=== PATIENT | female | born 1940 | race Caucasian/White ===

== ENCOUNTER 2016-09-28 11:45 | Emergency (ER) | payer OTHER, MEDICARE ==
--- NOTE | 2016-09-28 13:17 | DIAGNOSTIC IMAGING REPORT ---
PROCEDURE: XR LUMBAR SPINE 2 OR 3 VIEWS INDICATION: LOWER BACK PAIN TECHNIQUE: Three views. COMPARISON: None. FINDINGS: Status post fusion and artificial disc at L4-5. There is also a severe spondylosis at L 23. There is a severe degenerative change at L5-6 as well. IMPRESSION: 1. Status post L4-5 fusion with severe degenerative change at L5 S1 and at L2-3 on the right.
--- NOTE | 2016-09-28 13:19 | DIAGNOSTIC IMAGING REPORT ---
PROCEDURE: XR HIP 2VW W W/O AP PELVIS-RT INDICATION: PAIN TECHNIQUE: AP view of the pelvis and hips with lateral view of the right hip. COMPARISON: None. FINDINGS: Right HIP: Bilateral total hip replacement. There is no fracture or dislocation. PELVIS: Osseous pelvis is normal. IMPRESSION: 1. 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
--- NOTE | 2016-09-28 14:04 | ED CLINICAL REPORT ---
Clinical Report - Physicians/Mid Levels [facility] [address] [place] [address] 09/28/2016 11:48 Patient: THONY GARCÍA Time Seen: 12:21. Arrived- By private vehicle. Historian- patient. HISTORY OF PRESENT ILLNESS Chief Complaint: LOWER EXTREMITY PAIN. Severity is described as being severe. The quality is noted to be "pain" and similar to prior episodes. This started several weeks ago and is still present. It was gradual in onset and has been constant and waxing/waning. Symptoms located in the area of the right hip. The patient has not had redness. She has had difficulty walking. No bladder dysfunction or bowel dysfunction. Patient denies an injury. Patient denies a recent injury. Similar symptoms previously: Chronically. Recent medical care: The patient was seen recently at another facility in a clinic. Seen for similar symptoms. REVIEW OF SYSTEMS No chills, fever, sweats, calf pain or chest pain. No cough, difficulty breathing, pedal edema, palpitations or abdominal pain. No constipation, diarrhea, nausea, vomiting or urinary problems. The patient has had lower back pain (chronically - interm yearsittent). All systems otherwise negative, except as recorded above. PAST HISTORY Problems: Kidney failure. Arthritis. Heart valve . Hypercholesterolemia. Additional Surgeries: Back Surgery. Heart valve replacement. Hip Surgery. Medications: Aspirin Oral (Tablet 81 mg) 1 tablet, daily. Citalopram Hydrobromide Oral (Tablet 10 mg) 1 tablet, daily. Multivitamins Oral. Atorvastatin Calcium Oral (Tablet 40 mg) 1 tablet, daily. D3 Adult Oral (Tablet Chewable 1000 unit) 1 tablet, daily. Garlic Oral 550 mg , daily. OxyCODONE HCl Oral 5 mg. Glucosamine HCl Oral (Tablet 1500 mg) 1 tablet, 2x daily. Furosemide Oral 20 mg, 2x a day. Carvendilol 6.25, 2x a day. Allergies: None. SOCIAL HISTORY Never smoker. Occasional alcohol use. No drug use. FAMILY HISTORY Denies family medical history. ADDITIONAL NOTES The nursing notes have been reviewed. PHYSICAL EXAM Vital Signs: 09/28/2016 11:59 BP: 97/52. HR: 60. RR: 16. O2 saturation: 99%. Temp: 98 F. Pain level now: 02/27. Have been reviewed. Appearance: Alert. No acute distress. Eyes: Pupils equal, round and reactive to light. ENT: Pharynx normal. Neck: Normal inspection. Neck supple. CVS: Normal heart rate and rhythm. Heart sounds normal. Respiratory: No respiratory distress. Breath sounds normal. Abdomen: Soft and nontender. No organomegaly. Back: Normal inspection. Mildly limited ROM in the back- in the lumbar spine. No vertebral tenderness. Skin: Skin intact. Skin warm and dry. Normal skin color. Normal skin turgor. Extremities: No signs of infection involving the lower extremities. No calf tenderness. Extremities otherwise negative. Neuro, Vascular and Tendons: No pulse deficit present. Neuro: No motor deficit. No sensory deficit. LABS, X-RAYS, AND EKG LS-Spine X-rays: (IMPRESSION: 1. Status post L4-5 fusion with severe degenerative change at L5 S1 and at L2-3 on the right.). The X-rays were interpreted by the radiologist and contemporaneously by me. Pelvis X-ray: ( Exam(s): XR HIP 2VW W W/O AP PELVIS-RT Date of Exam: 09/28/2016 __ PROCEDURE: XR HIP 2VW W W/O AP PELVIS-RT INDICATION: PAIN TECHNIQUE: AP view of the pelvis and hips with lateral view of the right hip. COMPARISON: None. FINDINGS: Right HIP: Bilateral total hip replacement. There is no fracture or dislocation. PELVIS: Osseous pelvis is normal. IMPRESSION: 1. 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). The X-rays were interpreted by the radiologist and contemporaneously by me. PROGRESS AND PROCEDURES Patient/family counseled. Old medical records ordered. Old records unavailable. Disposition: Discharged. Condition: stable. CLINICAL IMPRESSION Right sided lumbar radiculopathy. INSTRUCTIONS No driving or operating machinery while taking sedating medication. (talk with your doctor about whether or not she would benefit from an MRI as discussed). Warnings: Further evaluation is necessary. GENERAL WARNINGS: Return or contact your physician immediately if your condition worsens or changes unexpectedly, if not improving as expected, or if other problems arise. Prescription Medications: Ultram 50 mg: take 1-2 orally every 6 hours as needed for pain. Dispense fifteen (15). No refills. Substitution is permissible. Follow-up: Follow up with your doctor JEFF Gaytan in three days. Call for an appointment. Understanding of the discharge instructions verbalized by patient and family. (Electronically signed by Doroteo Monahan MD 09/28/2016 16:52)
--- NOTE | 2016-09-28 14:04 | ED NURSING NOTES ---
Clinical Report - Nurses [facility] [address] [place] [address] 09/28/2016 11:48 [id number] <<STRICKEN ENTRY-- Triage time 11:59 Sep 28 2016. Acuity: LEVEL 3. Chief Complaint: LEFT LOWER EXTREMITY PAIN. Alert. No acute distress. SCAR COMA SCORE: Scar Coma Scale: 15- eyes open spontaneously (4); best verbal response- oriented x 4 (5); best motor response- obeys commands (6). --12:14 Maryse Chavarria R.N. --END STRIKE>> Correction --12:22 Maryse Chavarria R.N. 11:59 09/28/16. BP: 97/52. HR: 60. RR: 16. O2 saturation: 99%. Temp: 98 F. Pain level now: 02/27. --12:14 Maryse Chavarria R.N. <<STRICKEN ENTRY-- Triage time 115Sep 28 2016. Chief Complaint: LEFT LOWER EXTREMITY PAIN. Alert. No acute distress. SCAR COMA SCORE: Scar Coma Scale: 15- eyes open spontaneously (4); best verbal response- oriented x 4 (5); best motor response- obeys commands (6). --12:23 Maryse Chavarria R.N. --END STRIKE>> Correction --12:23 Maryse Chavarria R.N. Triage time 1158Sep 28 2016. Chief Complaint: RIGHT LOWER EXTREMITY PAIN. Alert. No acute distress. SCAR COMA SCORE: [place] Coma Scale: 15- eyes open spontaneously (4); best verbal response- oriented x 4 (5); best motor response- obeys commands (6). --12:25 Maryse Chavarria R.N. Weight: 59.1 kg stated. Height/Length: 64 inches Per Patient. BMI: 22.4. --12:13 Maryse Chavarria R.N. Medications Carvendilol 6.25, 2x a day. --12:03 Maryse Chavarria R.N. Furosemide Oral 20 mg, 2x a day. --12:03 Maryse Chavarria R.N. Glucosamine HCl Oral (Tablet 1500 mg) 1 tablet, 2x daily. --12:04 Maryse Chavarria R.N. OxyCODONE HCl Oral 5 mg. --12: Maryse Chavarria R.N. Garlic Oral 550 mg , daily. --12:05 Maryse Chavarria R.N. D3 Adult Oral (Tablet Chewable 1000 unit) 1 tablet, daily. --12: Maryse Chavarria R.N. Atorvastatin Calcium Oral (Tablet 40 mg) 1 tablet, daily. --12: Maryse Chavarria R.N. Multivitamins Oral. --12: Maryse Chavarria R.N. Citalopram Hydrobromide Oral (Tablet 10 mg) 1 tablet, daily. --12: Maryse Chavarria R.N. Aspirin Oral (Tablet 81 mg) 1 tablet, daily. --12: Maryse Chavarria R.N. Allergies None. --12: Maryse Chavarria R.N. History Arrived by private vehicle. Historian: patient. Accompanied by family. No injury occurred. This occurred (about 4 weeks ago). It is described as radiating to the left buttocks. She has had swelling to right lower leg, right ankle, right foot, left lower leg, left ankle and left foot, trouble walking and weakness. Treatment KNOCKDOWN MAN: (oxycodone, seen at [facility]). PAST MEDICAL HX: Tetanus status: up-to-date. Immunizations: up-to-date. Denies current . SOCIAL HX: Never smoker. Occasional alcohol use. No drug use. No infectious disease exposure. SELF HARM ASSESSMENT: A self harm assessment was performed. The patient answered "no" to the question "Do you have thoughts of harming or killing yourself?". Bedside precautions. NUTRITIONAL RISK ASSESSMENT: The nutritional risk assessment revealed no deficiencies. FUNCTIONAL ASSESSMENT: Functional assessment: no impairments noted. LEARNING NEEDS ASSESSMENT: The learning needs assessment revealed no barriers. ABUSE ASSESSMENT: Abuse assessment: The patient was asked "Do you feel safe in your home?". FALL RISK ASSESSMENT: Fall risk assessment completed. Risk factors identified include patient medications and age greater than 65 years. Fall interventions initiated. Patient placed on stretcher. Side rails up x2. Brakes on Bed in low position. Family at bedside. Call light in reach of patient and family. Instructed not to get up without assistance. SKIN INTEGRITY ASSESSMENT: Skin integrity risk assessment completed. No skin integrity risk identified. --12:14 Maryse Chavarria R.N. Arrived by private vehicle. Historian: patient. Accompanied by family. --12:23 Maryse Chavarria R.N. Arrived by private vehicle. Historian: patient. Accompanied by family. No injury occurred. This occurred (about 4 weeks ago). It is described as radiating to the right buttock. --12:25 Maryse Chavarria R.N. PROBLEMS: Kidney failure. Arthritis. Heart valve . Hypercholesterolemia. --12:09 Maryse Chavarria R.N. ADDITIONAL SURGERIES: Back Surgery. Heart valve replacement. Hip Surgery. --12:09 Maryse Chavarria R.N. Interventions ID band on patient. To room. --12:14 Maryse Chavarria R.N. PHYSICAL ASSESSMENT GENERAL / NEURO / PSYCH: Oriented X 4. Alert. Appears in pain. EXTREMITIES: Limited ROM present. Lower extremity edema. Extremity pulses are within normal limits. Right hip. Limited ROM secondary to pain. SKIN: Skin is warm and dry. --12:15 Maryse Chavarria R.N. To room via wheelchair. --12:15 Maryse Chavarria R.N. NURSING PROGRESS NOTES Patient gowned. Two patient identifiers checked. Call light placed in reach. Side rails up. Bed placed in lowest position. Brakes of bed on. Patient ready for evaluation- chart flagged. --12:16 Maryse Chavarria R.N. 13:32 09/28/16. BP: 158/54. HR: 58. RR: 16. O2 saturation: 94%. Pain level now: 02/27. --13:34 Maryse Chavarria R.N. The patient is calm and resting quietly. --13:34 Maryse Chavarria R.N. DISPOSITION / DISCHARGE Departure time: 1424Sep 28 2016. Condition at departure: unchanged. No learning barriers present. Discharge instructions provided and reviewed with the patient. Reviewed medication(s) side effects, precautions, dosing and course information. Prescription(s) given to the patient. Reviewed referral to a primary care physician for followup. Activity restrictions (rest) reviewed. Patient verbalized understanding. Written instructions provided in Italian. The patient was discharged home and accompanied by family. She left the Emergency Department in a wheelchair and via private vehicle. Family member driving. --14:32 Maryse Chavarria R.N. 14:30 09/28/16. BP: 151/47. HR: 51. RR: 16. O2 saturation: 98%. Pain level now: 02/27. --14:32 Maryse Chavarria R.N. Locked/Released at 09/28/2016 23:12 by Maryse Chavarria R.N.
--- NOTE | 2016-09-28 14:04 | ED ORDER SUMMARY ---
..... Patient: THONY GARCÍA OrderSheet [facility] VisitID: [id number] [address] [place] [address] 76y, F Registration Date/Time: 09/28/2016 ORDER SHEET Weight: 59.1 kg (stated) Allergies: None GENERAL ORDERS: Hip 2V Right w AP Pelvis Urgent (12:30 09/28/2016 Eula JIMENES) (Ack 12:32 KHoerner) (12:52 KHoerner) Lumbar Spine 2 or 3V Urgent (12:30 09/28/2016 Eula JIMENES) (Ack 12:32 KHoerner) (12:52 KHoerner) MEDICATION ORDERS: IV FLUIDS: ORDER SHEET NOTES: [Electronically signed by Doroteo Monahan MD (16:52 09/28/2016)] [Electronically signed by Maryse Chavarria R.N. (23:12 09/28/2016)] [Electronically locked/signed by Maryse Chavarria R.N. (23:12 09/28/2016)]
--- NOTE | 2016-09-28 14:04 | ED ORDER SUMMARY ---
..... Patient: THONY GARCÍA OrderSheet [facility] VisitID: [id number] [address] [place] [address] 76y, F Registration Date/Time: 09/28/2016 ORDER SHEET Weight: 59.1 kg (stated) Allergies: None GENERAL ORDERS: Hip 2V Right w AP Pelvis Urgent (12:30 09/28/2016 Eula JIMENES) (Ack 12:32 KHoerner) (12:52 KHoerner) Lumbar Spine 2 or 3V Urgent (12:30 09/28/2016 Eula JIMENES) (Ack 12:32 KHoerner) (12:52 KHoerner) MEDICATION ORDERS: IV FLUIDS: ORDER SHEET NOTES: [Electronically signed by Doroteo Monahan MD (16:52 09/28/2016)] [Electronically signed by Maryse Chavarria R.N. (23:12 09/28/2016)] [Electronically locked/signed by Maryse Chavarria R.N. (23:12 09/28/2016)]
--- NOTE | 2016-09-28 14:04 | ED CLINICAL REPORT ---
Clinical Report - Physicians/Mid Levels [facility] [address] [place] [address] 09/28/2016 11:48 Patient: THONY GARCÍA Time Seen: 12:21. Arrived- By private vehicle. Historian- patient. HISTORY OF PRESENT ILLNESS Chief Complaint: LOWER EXTREMITY PAIN. Severity is described as being severe. The quality is noted to be "pain" and similar to prior episodes. This started several weeks ago and is still present. It was gradual in onset and has been constant and waxing/waning. Symptoms located in the area of the right hip. The patient has not had redness. She has had difficulty walking. No bladder dysfunction or bowel dysfunction. Patient denies an injury. Patient denies a recent injury. Similar symptoms previously: Chronically. Recent medical care: The patient was seen recently at another facility in a clinic. Seen for similar symptoms. REVIEW OF SYSTEMS No chills, fever, sweats, calf pain or chest pain. No cough, difficulty breathing, pedal edema, palpitations or abdominal pain. No constipation, diarrhea, nausea, vomiting or urinary problems. The patient has had lower back pain (chronically - interm yearsittent). All systems otherwise negative, except as recorded above. PAST HISTORY Problems: Kidney failure. Arthritis. Heart valve . Hypercholesterolemia. Additional Surgeries: Back Surgery. Heart valve replacement. Hip Surgery. Medications: Aspirin Oral (Tablet 81 mg) 1 tablet, daily. Citalopram Hydrobromide Oral (Tablet 10 mg) 1 tablet, daily. Multivitamins Oral. Atorvastatin Calcium Oral (Tablet 40 mg) 1 tablet, daily. D3 Adult Oral (Tablet Chewable 1000 unit) 1 tablet, daily. Garlic Oral 550 mg , daily. OxyCODONE HCl Oral 5 mg. Glucosamine HCl Oral (Tablet 1500 mg) 1 tablet, 2x daily. Furosemide Oral 20 mg, 2x a day. Carvendilol 6.25, 2x a day. Allergies: None. SOCIAL HISTORY Never smoker. Occasional alcohol use. No drug use. FAMILY HISTORY Denies family medical history. ADDITIONAL NOTES The nursing notes have been reviewed. PHYSICAL EXAM Vital Signs: 09/28/2016 11:59 BP: 97/52. HR: 60. RR: 16. O2 saturation: 99%. Temp: 98 F. Pain level now: 02/27. Have been reviewed. Appearance: Alert. No acute distress. Eyes: Pupils equal, round and reactive to light. ENT: Pharynx normal. Neck: Normal inspection. Neck supple. CVS: Normal heart rate and rhythm. Heart sounds normal. Respiratory: No respiratory distress. Breath sounds normal. Abdomen: Soft and nontender. No organomegaly. Back: Normal inspection. Mildly limited ROM in the back- in the lumbar spine. No vertebral tenderness. Skin: Skin intact. Skin warm and dry. Normal skin color. Normal skin turgor. Extremities: No signs of infection involving the lower extremities. No calf tenderness. Extremities otherwise negative. Neuro, Vascular and Tendons: No pulse deficit present. Neuro: No motor deficit. No sensory deficit. LABS, X-RAYS, AND EKG LS-Spine X-rays: (IMPRESSION: 1. Status post L4-5 fusion with severe degenerative change at L5 S1 and at L2-3 on the right.). The X-rays were interpreted by the radiologist and contemporaneously by me. Pelvis X-ray: ( Exam(s): XR HIP 2VW W W/O AP PELVIS-RT Date of Exam: 09/28/2016 __ PROCEDURE: XR HIP 2VW W W/O AP PELVIS-RT INDICATION: PAIN TECHNIQUE: AP view of the pelvis and hips with lateral view of the right hip. COMPARISON: None. FINDINGS: Right HIP: Bilateral total hip replacement. There is no fracture or dislocation. PELVIS: Osseous pelvis is normal. IMPRESSION: 1. 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). The X-rays were interpreted by the radiologist and contemporaneously by me. PROGRESS AND PROCEDURES Patient/family counseled. Old medical records ordered. Old records unavailable. Disposition: Discharged. Condition: stable. CLINICAL IMPRESSION Right sided lumbar radiculopathy. INSTRUCTIONS No driving or operating machinery while taking sedating medication. (talk with your doctor about whether or not she would benefit from an MRI as discussed). Warnings: Further evaluation is necessary. GENERAL WARNINGS: Return or contact your physician immediately if your condition worsens or changes unexpectedly, if not improving as expected, or if other problems arise. Prescription Medications: Ultram 50 mg: take 1-2 orally every 6 hours as needed for pain. Dispense fifteen (15). No refills. Substitution is permissible. Follow-up: Follow up with your doctor JEFF Gaytan in three days. Call for an appointment. Understanding of the discharge instructions verbalized by patient and family. (Electronically signed by Doroteo Monahan MD 09/28/2016 16:52)
--- NOTE | 2016-09-28 23:13 | ED MED RECONCILIATION SUMMARY ---
Patient: THONY GARCÍA Medication Reconciliation Report [facility] VisitID: [id number] [address] [place] [address] 76y, F Registration Date/Time: 09/28/2016 Weight: 59.1 kg Height/Length: 64 in. BMI: 22.4 ALLERGIES: None The patient's Home Medications are listed below: THE FOLLOWING MEDICATIONS NEED TO BE RECONCILED: Aspirin Oral (81 mg) 1 tablet, daily Atorvastatin Calcium Oral (40 mg) 1 tablet, daily Carvendilol 6.25, 2x a day Citalopram Hydrobromide Oral (10 mg) 1 tablet, daily D3 Adult Oral (1000 unit) 1 tablet, daily Furosemide Oral 20 mg, 2x a day Garlic Oral 550 mg , daily Glucosamine HCl Oral (1500 mg) 1 tablet, 2x daily Multivitamins Oral OxyCODONE HCl Oral 5 mg The source(s) of the original Home Medication information: Not obtained. The following Medications were given to the patient in the Emergency Department: None. The following Medications were prescribed to the patient: Ultram 50 mg: take 1-2 orally every 6 hours as needed for pain. Dispense fifteen (15). No refills. Substitution is permissible. -- Doroteo Monahan MD
--- NOTE | 2016-09-28 23:13 | ED MAR SUMMARY ---
..... Medication Administration Record [facility] [address], [place] [id number] Patient: THONY GARCÍA Visit ID: [id number] 76y, F Weight: 59.1 kg Height/Length: 64 in BMI: 22.4 ALLERGIES: None
--- NOTE | 2016-09-28 23:13 | ED DISCHARGE INSTRUCTIONS ---
Patient: THONY GARCÍA General Instructions [facility] VisitID: [id number] [place] [address] 76y, F Registration Date/Time: 09/28/2016 Right sided lumbar radiculopathy. INSTRUCTIONS No driving or operating machinery while taking sedating medication. (talk with your doctor about whether or not she would benefit from an MRI as discussed). Warnings: Further evaluation is necessary. GENERAL WARNINGS: Return or contact your physician immediately if your condition worsens or changes unexpectedly, if not improving as expected, or if other problems arise. Prescription Medications: Ultram 50 mg: take 1-2 orally every 6 hours as needed for pain. Dispense fifteen (15). No refills. Substitution is permissible. Follow-up: Follow up with your doctor JEFF Gaytan in three days. Call for an appointment. Understanding of the discharge instructions verbalized by patient and family. ADDITIONAL INFORMATION Sciatica Sciatica ("Lumbar Radiculopathy") causes a pain that spreads from the lower back down into the buttock, hip and leg. Sometimes leg pain can occur without any back pain. Sciatica is due to irritation or pressure on a spinal nerve as it comes out of the spinal canal. This is most often due to a bulge or rupture of a nearby spinal disk (the cartilage cushion between each spinal bone), which presses on a nearby nerve. Other causes include spinal stenosis (narrowing of the spinal canal) and spasm of the pyriform muscle (a muscle in the buttocks that the sciatic nerve passes through). Sciatica may begin after a sudden twisting/bending force (such as in a car accident), or sometimes after a simple awkward movement. In either case, muscle spasm is commonly present and contributes to the pain. The diagnosis of sciatica is made from the symptoms and physical exam. Unless you had a physical injury (such as a car accident or fall), X-rays are usually not ordered for the initial evaluation of sciatica because the nerves and disks cannot be seen on an x-ray. If signs of a compressed nerve are present (for example, loss of tendon reflex or strength in the leg), an MRI (magnetic resonance imaging) scan will need to be scheduled as an outpatient. Most sciatica (80-90%) gets better with medicine, exercise, physical therapy. If symptoms continue after at least three months of medical treatment, surgery may be considered. Home Care: You may need to stay in bed the first few days. But, as soon as possible, begin sitting or walking to avoid problems with prolonged bed rest. When in bed, try to find a position of comfort. A firm mattress is best. Try lying flat on your back with pillows under your knees. You can also try lying on your side with your knees bent up towards your chest and a pillow between your knees. Avoid prolonged sitting. This puts more stress on the lower back than standing or walking. Some persons find relief with heat (hot shower, hot bath or heating pad) and massage, while others prefer cold packs (crushed or cubed ice in a plastic bag, wrapped in a towel). Try both and use the method that feels best for 20 minutes several times a day. You may use acetaminophen (Tylenol) or ibuprofen (Motrin, Advil) to control pain, unless another pain medicine was prescribed. [ NOTE: If you have chronic liver or kidney disease or ever had a stomach ulcer or GI bleeding, talk with your doctor before using these medicines.] Be aware of safe lifting methods and do not lift anything over 15 pounds until all the pain is gone. Follow Up with your doctor or this facility if your symptoms do not start to improve after one week. Physical therapy or further testing may be needed. [NOTE: If X-rays were taken, they will be reviewed by a radiologist. You will be notified of any new findings that may affect your care.] Get Prompt Medical Attention if any of the following occur: Pain becomes worse, not controlled by the prescribed medicine Weakness or numbness in one or both legs Numbness in the groin, genital area Loss of bowel or bladder control Tramadol Hydrochloride Oral tablet What is this medicine? TRAMADOL (TRA ma dole) is a pain reliever. It is used to treat moderate to severe pain in adults. How should I use this medicine? Take this medicine by mouth with a full glass of water. Follow the directions on the prescription label. If the medicine upsets your stomach, take it with food or milk. Do not take more medicine than you are told to take. Talk to your wastewater treatment plant instructor regarding the use of this medicine in children. Special care may be needed. What side effects may I notice from receiving this medicine? Side effects that you should report to your doctor or health direct care specialist as soon as possible: allergic reactions like skin rash, itching or hives, swelling of the face, lips, or tongue breathing difficulties, wheezing confusion itching light headedness or fainting spells redness, blistering, peeling or loosening of the skin, including inside the mouth seizures Side effects that usually do not require medical attention (report to your doctor or health direct care specialist if they continue or are bothersome): constipation dizziness drowsiness headache nausea, vomiting What may interact with this medicine? Do not take this medicine with any of the following medications: MAOIs like Carbex, Eldepryl, Marplan, Nardil, and Parnate This medicine may also interact with the following medications: alcohol or medicines that contain alcohol antihistamines benzodiazepines bupropion carbamazepine or oxcarbazepine clozapine cyclobenzaprine digoxin furazolidone linezolid medicines for depression, anxiety, or psychotic disturbances medicines for migraine headache like almotriptan, eletriptan, frovatriptan, naratriptan, rizatriptan, sumatriptan, zolmitriptan medicines for pain like pentazocine, buprenorphine, butorphanol, meperidine, nalbuphine, and propoxyphene medicines for sleep muscle relaxants naltrexone phenobarbital phenothiazines like perphenazine, thioridazine, chlorpromazine, mesoridazine, fluphenazine, prochlorperazine, promazine, and trifluoperazine procarbazine warfarin What if I miss a dose? If you miss a dose, take it as soon as you can. If it is almost time for your next dose, take only that dose. Do not take double or extra doses. Where should I keep my medicine? Keep out of the reach of children. Store at room temperature between 15 and 30 degrees C (59 and 86 degrees F). Keep container tightly closed. Throw away any unused medicine after the expiration date. What should I tell my health care provider before I take this medicine? They need to know if you have any of these conditions: brain tumor depression drug abuse or addiction head injury if you frequently drink alcohol containing drinks kidney disease or trouble passing urine liver disease lung disease, asthma, or breathing problems seizures or epilepsy suicidal thoughts, plans, or attempt; a previous suicide attempt by you or a family member an unusual or allergic reaction to tramadol, codeine, other medicines, foods, dyes, or preservatives or trying to get breast-feeding What should I watch for while using this medicine? Tell your doctor or health direct care specialist if your pain does not go away, if it gets worse, or if you have new or a different type of pain. You may develop tolerance to the medicine. Tolerance means that you will need a higher dose of the medicine for pain relief. Tolerance is normal and is expected if you take this medicine for a long time. Do not suddenly stop taking your medicine because you may develop a severe reaction. Your body becomes used to the medicine. This does NOT mean you are addicted. Addiction is a behavior related to getting and using a drug for a non-medical reason. If you have pain, you have a medical reason to take pain medicine. Your doctor will tell you how much medicine to take. If your doctor wants you to stop the medicine, the dose will be slowly lowered over time to avoid any side effects. You may get drowsy or dizzy. Do not drive, use machinery, or do anything that needs mental alertness until you know how this medicine affects you. Do not stand or sit up quickly, especially if you are an older patient. This reduces the risk of dizzy or fainting spells. Alcohol can increase or decrease the effects of this medicine. Avoid alcoholic drinks. You may have constipation. Try to have a bowel movement at least every 2 to 3 days. If you do not have a bowel movement for 3 days, call your doctor or health direct care specialist. Your mouth may get dry. Chewing sugarless gum or sucking hard candy, and drinking plenty of water may help. Contact your doctor if the problem does not go away or is severe. You have been given the following additional information: Back Pain W/ Sciatica Tramadol Hydrochloride Oral tablet No driving or operating machinery while taking sedating medication. (Electronically signed by Doroteo Monahan MD 09/28/2016 16:52)
--- NOTE | 2016-09-28 23:13 | ED MAR SUMMARY ---
..... Medication Administration Record [facility] [address] [place], [place] [id number] Patient: THONY GARCÍA Visit ID: [id number] 76y, F Weight: 59.1 kg Height/Length: 64 in BMI: 22.4 ALLERGIES: None
--- NOTE | 2016-09-28 23:13 | ED MED RECONCILIATION SUMMARY ---
Patient: THONY GARCÍA Medication Reconciliation Report [facility] VisitID: [id number] [address] [place] [address] 76y, F Registration Date/Time: 09/28/2016 Weight: 59.1 kg Height/Length: 64 in. BMI: 22.4 ALLERGIES: None The patient's Home Medications are listed below: THE FOLLOWING MEDICATIONS NEED TO BE RECONCILED: Aspirin Oral (81 mg) 1 tablet, daily Atorvastatin Calcium Oral (40 mg) 1 tablet, daily Carvendilol 6.25, 2x a day Citalopram Hydrobromide Oral (10 mg) 1 tablet, daily D3 Adult Oral (1000 unit) 1 tablet, daily Furosemide Oral 20 mg, 2x a day Garlic Oral 550 mg , daily Glucosamine HCl Oral (1500 mg) 1 tablet, 2x daily Multivitamins Oral OxyCODONE HCl Oral 5 mg The source(s) of the original Home Medication information: Not obtained. The following Medications were given to the patient in the Emergency Department: None. The following Medications were prescribed to the patient: Ultram 50 mg: take 1-2 orally every 6 hours as needed for pain. Dispense fifteen (15). No refills. Substitution is permissible. -- Doroteo Monahan MD
== END 2016-09-28 14:25 | disposition home or self-care (01) ==
LOC: ED SRH 11:45
DX: M54.16 Radiculopathy, lumbar region (principal); Z96.643 Presence of artificial hip joint, bilateral; M19.90 Unspecified osteoarthritis, unspecified site; E78.00 Pure hypercholesterolemia, unspecified; Z79.82 Long term (current) use of aspirin; Z79.899 Other long term (current) drug therapy